=== PATIENT | male | born 1985 | race Hispanic/Latino ===

== ENCOUNTER 2018-07-21 18:50 | Emergency (ER) | payer SELFPAY ==
[~2018-07-21] VITALS: Ht 175.3 cm; Wt 129.3 kg
[2018-07-21] MEDS ORDERED: HYDROCODONE/APAP 10MG-325MG TAB PO ONE (19:15)
[2018-07-21] MEDS ORDERED: CLINDAMYCIN PHOS 600 MG/ 4 ML VIAL IM ONE (19:30)
[2018-07-21 21:12] VITALS: BP 139/79
== END 2018-07-21 21:16 | disposition home or self-care (01) ==
LOC: ER 18:50
DX: K02.9 Dental caries, unspecified (principal)
CPT/HCPCS: 99283

== ENCOUNTER 2022-10-01 18:21 | Emergency (ER) | payer BC ==
[~2022-10-01] VITALS: Ht 175.3 cm; Wt 129.3 kg
[2022-10-01] MEDS ORDERED: AZITHROMYCIN250 MG PO (21:04)
[2022-10-01] MEDS ORDERED: VENTOLIN HFA18 GM INH (21:04)
[2022-10-01] MEDS ORDERED: PREDNISONE20 MG PO (21:04)
== END 2022-10-01 21:09 | disposition home or self-care (01) ==
LOC: ER 18:24
DX: R05.9 Cough, unspecified (principal); Z20.822 Contact with and (suspected) exposure to COVID-19
CPT/HCPCS: 71045; 93005; 99283; U0002